=== PATIENT | male | born 1950 | race African-American/Black ===

== ENCOUNTER 2022-09-15 14:18 | Inpatient (IN) | payer OTHER, MEDICAID ==
[~2022-09-15] VITALS: Ht 180.3 cm; Wt 72.6 kg
[~2022-09-15 14:18] MED LIST: CARV25TA47 PO; LOSA50TA41 PO; PRAV20TA57 PO
[2022-09-15 15:38] LABS: CHLORIDE 110 mEq/L (98-107)
[2022-09-15 15:46] LABS: BASOPHILS % 0.8 % (0.0-2.0); EOSINOPHILS % 5.3 % (0.0-5.0); HEMATOCRIT. 31.7 % (42.0-52.0); HEMOGLOBIN. 10.6 g/dL (14.0-18.0); LYMPHOCYTES % 21.2 % (20.0-50.0); MEAN CORPUSCULAR HEMOGLOBIN 28.5 pg (28.0-32.0); MEAN CORPUSCULAR VOLUME 85.5 fL (80.0-94.0); MONOCYTES % 14.1 % (2.0-8.0); NEUTROPHILS % 58.6 % (40.0-76.0); PLATELET 182 x1000/uL (130-400); RED BLOOD CELL COUNT 3.71 mill/uL (4.7-6.1); RED CELL DISTRIBUTION WIDTH 13.6 % (11.6-14.6)
[2022-09-15] MEDS ORDERED: HYDROCODONE/ACETAMINOPHEN 5/325MG TABLET PO ONE (17:30)
[2022-09-15 19:44] LABS: CLARITY URINE CLEAR (CLEAR); COLOR URINE YELLOW (YELLOW); KETONES URINE 1+ (NEGATIVE); LEUKOCYTE ESTERASE URINE NEGATIVE (NEGATIVE); NITRITE URINE NEGATIVE (NEGATIVE); OCCULT BLOOD URINE NEGATIVE (NEGATIVE); PROTEIN URINE 1+ (NEGATIVE); SPECIFIC GRAVITY URINE 1.024 (1.005-1.030)
[2022-09-15 20:00] VITALS: BP 123/79
[2022-09-15 21:54] VITALS: BP 121/73
[2022-09-16] VITALS: BP 118/72
[2022-09-16 04:00] VITALS: BP 112/83
[2022-09-16 06:29] LABS: BASOPHILS % 0.8 % (0.0-2.0); EOSINOPHILS % 9.6 % (0.0-5.0); HEMATOCRIT. 31.5 % (42.0-52.0); HEMOGLOBIN. 10.5 g/dL (14.0-18.0); LYMPHOCYTES % 30.6 % (20.0-50.0); MEAN CORPUSCULAR HEMOGLOBIN 28.6 pg (28.0-32.0); MEAN CORPUSCULAR VOLUME 85.9 fL (80.0-94.0); MEAN PLATELET VOLUME 8.3 fl (7.4-10.4); MONOCYTES % 14.3 % (2.0-8.0); NEUTROPHILS % 44.7 % (40.0-76.0); PLATELET 175 x1000/uL (130-400); RED BLOOD CELL COUNT 3.66 mill/uL (4.7-6.1); RED CELL DISTRIBUTION WIDTH 13.1 % (11.6-14.6)
[2022-09-16 08:00] VITALS: BP 127/87
[2022-09-16] MEDS ORDERED: CARVEDILOL 12.5MG TABLET PO SCH (09:00)
[2022-09-16] MEDS ORDERED: LOSARTAN POTASSIUM 50 MG TABLET PO SCH (09:00)
[2022-09-16] MEDS ORDERED: ENOXAPARIN 30MG/0.3ML SYR SUBCUT SCH (09:00)
[2022-09-16 09:14] LABS: BG BASE EXCESS -4.4 mmol/L (-2.0-2.0); BG CARBOXYHEMOGLOBIN 0.2 % (0.5-1.5); BG DEOXYHEMOGLOBIN 2.5 % (0.0-5.0); BG FRACTION INSPIRED OXYGEN 21; BG HCO3 ACT 19.3 mmol/L (22.0-26.0); BG METHEMOGLOBIN 0.4 % (0.0-1.5); BG OXYGEN SATURATION 97.5 % (92.0-98.5); BG OXYHEMOGLOBIN 96.9 % (94.0-97.0); BG PCO2 30.9 mmHg (35.0-45.0); BG PH 7.413 (7.350-7.450); BG PO2 104.4 mmHg (75.0-100.0); BG SAMPLE SITE LEFT RADIAL; BG TOTAL HEMOGLOBIN 10.8 g/dL (12.0-18.0); BG VENT MODE ROOM AIR
[2022-09-16 12:00] VITALS: BP 95/60
[2022-09-16] MEDS ORDERED: SODIUM CHLORIDE 0.45% 1,000 ML IV SCH (12:00)
[2022-09-16 16:00] VITALS: BP 115/65
[2022-09-16 17:51] LABS: CHLORIDE 111 mEq/L (98-107)
[2022-09-16 18:52] VITALS: BP 115/65
== END 2022-09-16 19:39 | disposition home or self-care (01) | DRG 682 ==
LOC: ER 14:18 → 7EST 19:19 → EDBEDREQTM 19:24 → EDBEDREQSVC 19:24 → EDBEDREQ 19:24
PROVIDERS: ADMIT Internal Medicine; ATTEND Internal Medicine
DX: N17.9 Acute kidney failure, unspecified (principal); U07.1 COVID-19; E86.1 Hypovolemia; E86.0 Dehydration; E78.00 Pure hypercholesterolemia, unspecified; I10 Essential (primary) hypertension; Z85.46 Personal history of malignant neoplasm of prostate; Z92.21 Personal history of antineoplastic chemotherapy
CPT/HCPCS: 36415; 36600; 71045; 80048; 80053; 81003; 82375; 82805; 83880; 84484; 85025; 87426; 93005; 97162; 99285; C9803; J1650

== ENCOUNTER 2023-12-18 12:32 | Emergency (ER) | payer MEDICARE, MEDICAID ==
[~2023-12-18] VITALS: Ht 177.8 cm; Wt 73.0 kg
[~2023-12-18 12:32] MED LIST changes: -LOSA50TA41 PO
[2023-12-18 12:49] VITALS: O2SAT 99
[2023-12-18 13:54] LABS: BASOPHILS % 0.8 % (0.0-2.0); EOSINOPHILS % 2.5 % (0.0-5.0); LYMPHOCYTES % 9.1 % (20.0-50.0); MEAN CORPUSCULAR HEMOGLOBIN 27.9 pg (28.0-32.0); MEAN CORPUSCULAR HGB CONC 32.3 g/dL (31.0-37.0); MEAN CORPUSCULAR VOLUME 86.4 fL (80.0-94.0); MEAN PLATELET VOLUME 7.8 fl (7.4-10.4); MONOCYTES % 9.4 % (2.0-8.0); NEUTROPHILS % 78.2 % (40.0-76.0); PLATELET 220 x1000/uL (130-400); RED BLOOD CELL COUNT 3.93 mill/uL (4.7-6.1); RED CELL DISTRIBUTION WIDTH 13.8 % (11.6-14.6); WHITE BLOOD COUNT 12.1 x1000/uL (4.5-11.0)
[2023-12-18 13:58] LABS: CLARITY URINE CLOUDY (CLEAR); COLOR URINE DARK YELLOW (YELLOW); GLUCOSE URINE NEGATIVE (NEGATIVE); KETONES URINE TRACE (NEGATIVE); LEUKOCYTE ESTERASE URINE TRACE (NEGATIVE); NITRITE URINE NEGATIVE (NEGATIVE); OCCULT BLOOD URINE NEGATIVE (NEGATIVE); PH URINE 5.5 (4.5-8.0); PROTEIN URINE 1+ (NEGATIVE); SPECIFIC GRAVITY URINE 1.027 (1.005-1.030)
[2023-12-18 14:01] LABS: CALCIUM 9.5 mg/dL (8.7-10.4)
[2023-12-18 14:06] LABS: CREATININE 1.6 mg/dL (0.6-1.3)
[2023-12-18 14:47] LABS: MUCUS URINE 1+ /lpf (NONE/TRACE); WAXY CASTS URINE 0-5 /lpf
[2023-12-18 14:49] LABS: BACTERIA URINE TRACE; CALCIUM OXALATE CRYSTALS URINE 1+ /lpf; COARSE GRANULAR CASTS URINE 0-5 /lpf; HYALINE CASTS URINE 0-5 /lpf
[2023-12-18 14:50] LABS: RBC URINE 0-2 /hpf (0-2); SQUAMOUS EPITHELIAL CELL URINE FEW /lpf (RARE/1+); WBC URINE 0-2 /hpf (0-2)
[2023-12-18] MEDS: KETOROLAC 60MG/2ML VIAL IM ONE (16:30)
[2023-12-18] MEDS: MORPHINE SULFATE 4 MG/ML INJ (FOR IV/IM USE) IM ONE (16:30)
[2023-12-18] MEDS ORDERED: CEFTRIAXONE 1GM/50ML 50 ML IV ONE (16:30)
[2023-12-18] MEDS ORDERED: MORPHINE SULFATE 4 MG/ML INJ (FOR IV/IM USE) IV ONE (16:30)
[2023-12-18 17:20] LABS: CHLORIDE 109 mEq/L (98-107); POTASSIUM 4.1 mEq/L (3.5-5.1); SODIUM 141 mEq/L (136-145)
[2023-12-18 17:21] LABS: CALCIUM 9.2 mg/dL (8.7-10.4); CARBON DIOXIDE 23 mEq/L (21-32)
[2023-12-18 17:26] LABS: CREATININE 1.5 mg/dL (0.6-1.3); GLUCOSE 103 mg/dL (70-105); UREA NITROGEN BLOOD 17 mg/dL (9-23)
[2023-12-18 17:28] LABS: ALANINE AMINOTRANSFERASE 18 IU/L (10-49); ALBUMIN 4.6 g/dL (3.2-4.8); ASPARTATE AMINOTRANSFERASE 26 IU/L (<34); PROTEIN TOTAL 7.6 g/dL (6.0-8.3)
[2023-12-18 17:37] LABS: PROTHROMBIN TIME 11.5 sec (9.6-11.0)
[2023-12-18] MEDS: MORPHINE SULFATE 4 MG/ML INJ (FOR IV/IM USE) IV NR (18:52)
[2023-12-18] MEDS: CEFTRIAXONE 1GM/50ML 50 ML IV NR (19:03)
[2023-12-18] MEDS: SODIUM CHLORIDE 0.9% 1000ML BAG (SEPSIS BOLUS) IV ONE (19:03)
[2023-12-18] MEDS ORDERED: IOHEXOL-300 100 ML BOTTLE ONE (23:54)
[2023-12-19 00:25] VITALS: BP 135/88; PULSE 75; RESP 18; TEMP 98.2
== END 2023-12-19 02:15 | disposition short-term general hospital (02) ==
LOC: ER 12:32 → EDBEDREQSVC 22:22 → EDBEDREQ 22:22 → CANBEDREQ 12-19 01:06 → ER 12-19 02:15
DX: R10.31 Right lower quadrant pain (principal); R65.10 Systemic inflammatory response syndrome (SIRS) of non-infectious origin without acute organ dysfunction; Z85.9 Personal history of malignant neoplasm, unspecified
CPT/HCPCS: 99291; 74177; 96365; 96375; 80053; 81003; 83605; 85025; 85610; 87040; 36415; 84145; 96372; 80048; Q9967; J0696; J1885; J2270; J7030